=== PATIENT | male | born 1980 | race Caucasian/White ===

== ENCOUNTER 2017-02-16 22:51 | Emergency (ER) | payer BC ==
[~2017-02-16] VITALS: Ht 185.4 cm; Wt 104.5 kg
[~2017-02-16 22:51] MED LIST: ADDERALL30 MG PO; CIPRO 250MG TA250 MG PO; FLAGYL500 MG PO; PREDNISONE10 MG PO; TRIAMCINOLONE0.1% TP; ZYRTEC10 MG PO
[2017-02-16] MEDS ORDERED: NEXIUM20 MG PO (23:09)
[2017-02-16] MEDS ORDERED: LISINOPRIL20 MG PO (23:09)
[2017-02-16] MEDS ORDERED: AMOXICILLIN875 MG PO (23:21)
[2017-02-16] MEDS ORDERED: NORCO 325 MG-51 TA1 PO (23:21)
[2017-02-16 23:33] VITALS: BP 160/113
== END 2017-02-16 23:30 | disposition home or self-care (01) ==
LOC: ED 22:51
DX: K04.7 Periapical abscess without sinus (principal); K03.81 Cracked tooth; I10 Essential (primary) hypertension; F17.200 Nicotine dependence, unspecified, uncomplicated

== ENCOUNTER → 2018-01-13 | Outpatient (CLI) | payer BC ==
[~2018-01-13] MED LIST changes: +AMOXICILLIN875 MG PO; +LISINOPRIL20 MG PO; +NEXIUM20 MG PO; +NORCO 325 MG-51 TA1 PO
== END ==
LOC: RAD 17:14
DX: M25.461 Effusion, right knee (principal)

== ENCOUNTER → 2018-02-11 | Outpatient (CLI) | payer BC | LOC: LAB 15:35 | DX: R05 Cough (principal); R50.9 Fever, unspecified; R52 Pain, unspecified ==

== ENCOUNTER → 2020-03-19 | Outpatient (CLI) | payer OTHER ==
[2020-03-19 09:45] LABS: URINE APPEARANCE HAZY; URINE BILIRUBIN NEGATIVE (NEGATIVE); URINE BLOOD 50 ery/uL (NEGATIVE); URINE COLOR YELLOW; URINE GLUCOSE NEGATIVE (NEGATIVE); URINE KETONE NEGATIVE (NEGATIVE); URINE LEUKOCYTE ESTERASE NEGATIVE (NEGATIVE); URINE MUCUS PRESENT (NOT PRESENT); URINE NITRATE NEGATIVE (NEGATIVE); URINE PROTEIN(semi-quant) 2+ mg/dL (NEGATIVE); URINE UROBILINOGEN NORMAL (NORMAL); URINE WBC 0-1 /hpf (0-3)
== END ==
LOC: LAB 09:14
PROVIDERS: Family Medicine
DX: I10 Essential (primary) hypertension (principal); F90.9 Attention-deficit hyperactivity disorder, unspecified type; R10.9 Unspecified abdominal pain; R12 Heartburn

== ENCOUNTER → 2020-05-31 | Outpatient (CLI) | payer OTHER ==
[2020-05-31 09:00] LABS: HEMATOCRIT 44.2 % (42.0-52.0); HEMOGLOBIN 15.2 g/dL (13.5-18.0); MEAN CELL VOLUME 95 fl (78-100); MEAN CORPUSCULAR HEMOGLOBIN 33 pg (27-31); MEAN CORPUSCULAR HGB CONC 34 g/dL (33-37); MEAN PLATELET VOLUME 9.9 fl (7.4-10.4); PLATELET COUNT 187 K/mm3 (130-400); RED BLOOD COUNT 4.67 M/mm3 (4.20-5.60); RED CELL DISTRIBUTION WIDTH 13.2 % (11.5-14.5); WHITE BLOOD COUNT 6.3 K/mm3 (4.8-10.8)
[2020-05-31 09:21] LABS: LYMPHOCYTE 27 % (20-51); MONOCYTE 16 % (3-10); NEUTROPHILS 51 % (42-75)
== END ==
LOC: LAB 08:47
PROVIDERS: Family Medicine
DX: R10.84 Generalized abdominal pain (principal)

== ENCOUNTER 2020-07-19 23:02 | Emergency (ER) | payer OTHER ==
[2020-07-20 00:31] LABS: EOS # 0.2 (0.04-0.40); EOS % 2.5 % (0.0-4.0); HEMATOCRIT 43.9 % (42.0-52.0); HEMOGLOBIN 15.1 g/dL (13.5-18.0); LYMPH# 2.2 (1.50-4.00); MEAN CELL VOLUME 96 fl (78-100); MEAN CORPUSCULAR HEMOGLOBIN 33 pg (27-31); MEAN CORPUSCULAR HGB CONC 34 g/dL (33-37); MEAN PLATELET VOLUME 10.5 fl (7.4-10.4); MONO # 0.8 (0.20-0.80); NEU # 3.7 (1.40-6.50); PLATELET COUNT 168 K/mm3 (130-400); RED BLOOD COUNT 4.59 M/mm3 (4.20-5.60); WHITE BLOOD COUNT 6.8 K/mm3 (4.8-10.8)
[2020-07-20 00:32] LABS: ALBUMIN 3.9 g/dL (3.5-5.0); POTASSIUM 3.2 mmol/L (3.5-5.1)
[2020-07-20 00:34] LABS: CALCIUM 8.4 mg/dL (8.3-10.5)
[2020-07-20 00:35] LABS: TOTAL PROTEIN 6.9 g/dL (6.4-8.3)
[2020-07-20 00:37] LABS: TOTAL BILIRUBIN 0.4 mg/dL (0.2-1.2)
[2020-07-20 00:42] LABS: ACETAMINOPHEN < 1 ug/mL
[2020-07-20 01:06] LABS: URINE APPEARANCE CLEAR; URINE BILIRUBIN NEGATIVE (NEGATIVE); URINE BLOOD NEGATIVE (NEGATIVE); URINE COLOR YELLOW; URINE GLUCOSE NEGATIVE (NEGATIVE); URINE KETONE NEGATIVE (NEGATIVE); URINE NITRATE NEGATIVE (NEGATIVE); URINE PROTEIN(semi-quant) TRACE mg/dL (NEGATIVE); URINE UROBILINOGEN NORMAL (NORMAL)
[2020-07-20 01:07] LABS: URINE LEUKOCYTE ESTERASE NEGATIVE (NEGATIVE); URINE WBC 0-1 /hpf (0-3)
[2020-07-20 01:09] LABS: TROPONIN-I < 0.03 ng/mL (<0.030)
[2020-07-20 02:00] VITALS: BP 145/99
== END 2020-07-20 02:00 | disposition home or self-care (01) ==
LOC: ED 23:02
PROVIDERS: Nurse Practitioner Family
DX: S06.9X9A Unspecified intracranial injury with loss of consciousness of unspecified duration, initial encounter (principal); S00.83XA Contusion of other part of head, initial encounter; F19.129 Other psychoactive substance abuse with intoxication, unspecified; R94.5 Abnormal results of liver function studies; W10.9XXA Fall (on) (from) unspecified stairs and steps, initial encounter
CPT/HCPCS: Q9967

== ENCOUNTER → 2020-10-04 | Outpatient (CLI) | payer OTHER ==
[2020-10-04 14:44] LABS: HEMATOCRIT 47.3 % (42.0-52.0); MEAN CELL VOLUME 98 fl (78-100); MEAN CORPUSCULAR HEMOGLOBIN 33 pg (27-31); MEAN CORPUSCULAR HGB CONC 34 g/dL (33-37); MEAN PLATELET VOLUME 9.9 fl (7.4-10.4); PLATELET COUNT 140 K/mm3 (130-400); RED BLOOD COUNT 4.82 M/mm3 (4.20-5.60); RED CELL DISTRIBUTION WIDTH 13.2 % (11.5-14.5); WHITE BLOOD COUNT 5.1 K/mm3 (4.8-10.8)
[2020-10-04 14:51] LABS: ALBUMIN 4.1 g/dL (3.5-5.0); POTASSIUM 3.7 mmol/L (3.5-5.1)
[2020-10-04 14:52] LABS: CALCIUM 8.9 mg/dL (8.3-10.5)
[2020-10-04 14:54] LABS: TOTAL PROTEIN 7.2 g/dL (6.4-8.3)
[2020-10-04 14:55] LABS: TOTAL BILIRUBIN 0.8 mg/dL (0.2-1.2)
[2020-10-04 15:25] LABS: PH-URINE 5.5 (5.0 - 8.0); URINE APPEARANCE CLEAR; URINE BILIRUBIN NEGATIVE (NEGATIVE); URINE BLOOD TRACE (NEGATIVE); URINE COLOR YELLOW; URINE GLUCOSE NEGATIVE (NEGATIVE); URINE KETONE NEGATIVE (NEGATIVE); URINE LEUKOCYTE ESTERASE NEGATIVE (NEGATIVE); URINE NITRATE NEGATIVE (NEGATIVE); URINE PROTEIN(semi-quant) TRACE mg/dL (NEGATIVE); URINE UROBILINOGEN NORMAL (NORMAL); URINE WBC 0-1 /hpf (0-3)
[2020-10-04 15:26] LABS: LYMPHOCYTE 31 % (20-51); MONOCYTE 14 % (3-10); NEUTROPHILS 53 % (42-75)
== END ==
LOC: LAB 14:29
PROVIDERS: Physician Assistant
DX: K76.0 Fatty (change of) liver, not elsewhere classified (principal)

== ENCOUNTER → 2021-02-22 | Outpatient (CLI) | payer OTHER ==
[2021-02-22 16:16] LABS: ALBUMIN 4.2 g/dL (3.5-5.0)
[2021-02-22 16:18] LABS: TOTAL PROTEIN 7.7 g/dL (6.4-8.3)
[2021-02-22 16:20] LABS: TOTAL BILIRUBIN 1.3 mg/dL (0.2-1.2)
[2021-02-22 16:22] LABS: BASO # 0.03 (0.02-0.10); EOS # 0.23 (0.04-0.40); EOS % 2.5 % (0.0-4.0); HEMATOCRIT 47.7 % (42.0-52.0); HEMOGLOBIN 16.6 g/dL (13.5-18.0); LYMPH# 2.24 (1.50-4.00); MEAN CELL VOLUME 96 fl (78-100); MEAN CORPUSCULAR HEMOGLOBIN 34 pg (27-31); MEAN CORPUSCULAR HGB CONC 35 g/dL (33-37); MEAN PLATELET VOLUME 9.8 fl (7.4-10.4); MONO # 1.27 (0.20-0.80); NEU # 5.45 (1.40-6.50); PLATELET COUNT 166 K/mm3 (130-400); RED BLOOD COUNT 4.95 M/mm3 (4.20-5.60); WHITE BLOOD COUNT 9.3 K/mm3 (4.8-10.8)
[2021-02-22 18:04] LABS: URINE APPEARANCE CLEAR; URINE BILIRUBIN NEGATIVE (NEGATIVE); URINE BLOOD NEGATIVE (NEGATIVE); URINE COLOR YELLOW; URINE GLUCOSE NEGATIVE (NEGATIVE); URINE KETONE NEGATIVE (NEGATIVE); URINE LEUKOCYTE ESTERASE NEGATIVE (NEGATIVE); URINE MUCUS PRESENT (NOT PRESENT); URINE NITRATE NEGATIVE (NEGATIVE); URINE PROTEIN(semi-quant) TRACE mg/dL (NEGATIVE); URINE UROBILINOGEN NORMAL (NORMAL)
[2021-02-22 18:05] LABS: ERYTHROCYTE SEDIMENTATION RATE 52 mm/hr (0-15)
[2021-02-22 19:36] LABS: DIRECT BILIRUBIN 0.5 mg/dL (0.0-0.5)
== END ==
LOC: LAB 15:42
PROVIDERS: Family Medicine
DX: K57.90 Diverticulosis of intestine, part unspecified, without perforation or abscess without bleeding (principal)

== ENCOUNTER → 2021-11-15 | Outpatient (CLI) | payer OTHER ==
[2021-11-15 09:02] LABS: BASO # 0.04 K/mm3 (0.02-0.10); EOS # 0.17 K/mm3 (0.04-0.40); EOS % 2.9 % (0.0-4.0); HEMATOCRIT 43.3 % (42.0-52.0); HEMOGLOBIN 14.7 g/dL (13.5-18.0); MEAN CELL VOLUME 98 fl (78-100); MEAN CORPUSCULAR HEMOGLOBIN 33 pg (27-31); MEAN CORPUSCULAR HGB CONC 34 g/dL (33-37); MEAN PLATELET VOLUME 10.5 fl (7.4-10.4); MONO # 0.83 K/mm3 (0.20-0.80); PLATELET COUNT 156 K/mm3 (130-400); RED BLOOD COUNT 4.41 M/mm3 (4.20-5.60); RED CELL DISTRIBUTION WIDTH 12.3 % (11.5-14.5); WHITE BLOOD COUNT 5.9 K/mm3 (4.8-10.8)
[2021-11-15 09:05] LABS: ALBUMIN 4.1 g/dL (3.5-5.0)
[2021-11-15 09:06] LABS: CALCIUM 9.5 mg/dL (8.3-10.5)
[2021-11-15 09:07] LABS: TOTAL PROTEIN 7.1 g/dL (6.4-8.3)
[2021-11-15 09:09] LABS: TOTAL BILIRUBIN 0.8 mg/dL (0.2-1.2)
== END ==
LOC: LAB 08:23
PROVIDERS: Physician Assistant
DX: Z00.00 Encounter for general adult medical examination without abnormal findings (principal); Z12.5 Encounter for screening for malignant neoplasm of prostate; Z13.220 Encounter for screening for lipoid disorders; K90.9 Intestinal malabsorption, unspecified; K21.9 Gastro-esophageal reflux disease without esophagitis; K76.0 Fatty (change of) liver, not elsewhere classified; F90.9 Attention-deficit hyperactivity disorder, unspecified type; I10 Essential (primary) hypertension; R74.8 Abnormal levels of other serum enzymes; R73.9 Hyperglycemia, unspecified

== ENCOUNTER 2022-02-22 00:18 | Emergency (ER) | payer OTHER ==
[~2022-02-22] VITALS: Ht 182.9 cm; Wt 104.5 kg
[2022-02-22] MEDS ORDERED: BACTRIM DS TAB1 EACH PO (00:53)
[2022-02-22 01:16] VITALS: BP 135/83
== END 2022-02-22 01:16 | disposition home or self-care (01) ==
LOC: ED 00:18
DX: L03.116 Cellulitis of left lower limb (principal); Z28.310 Unvaccinated for COVID-19

== ENCOUNTER 2022-10-03 19:36 | Emergency (ER) | payer OTHER ==
[~2022-10-03] VITALS: Ht 185.4 cm; Wt 112.7 kg
[~2022-10-03 19:36] MED LIST changes: +BACTRIM DS TAB1 EACH PO
[2022-10-03 20:22] LABS: BASO # 0.04 K/mm3 (0.02-0.10); EOS # 0.18 K/mm3 (0.04-0.40); EOS % 3.1 % (0.0-4.0); HEMATOCRIT 44.1 % (42.0-52.0); HEMOGLOBIN 15.3 g/dL (13.5-18.0); LYMPH# 1.53 K/mm3 (1.50-4.00); MEAN CELL VOLUME 96 fl (78-100); MEAN CORPUSCULAR HEMOGLOBIN 33 pg (27-31); MEAN CORPUSCULAR HGB CONC 35 g/dL (33-37); MEAN PLATELET VOLUME 10.1 fl (7.4-10.4); MONO # 0.73 K/mm3 (0.20-0.80); PLATELET COUNT 139 K/mm3 (130-400); RED BLOOD COUNT 4.59 M/mm3 (4.20-5.60); RED CELL DISTRIBUTION WIDTH 12.8 % (11.5-14.5); WHITE BLOOD COUNT 5.8 K/mm3 (4.8-10.8)
[2022-10-03 20:30] LABS: ALBUMIN 4.1 g/dL (3.5-5.0); POTASSIUM 3.6 mmol/L (3.5-5.1)
[2022-10-03 20:31] LABS: CALCIUM 8.9 mg/dL (8.3-10.5)
[2022-10-03 20:32] LABS: TOTAL PROTEIN 6.9 g/dL (6.4-8.3)
[2022-10-03 20:44] LABS: URINE WBC 0 /hpf (0-3)
[2022-10-03 20:54] LABS: URINE APPEARANCE CLEAR; URINE BILIRUBIN NEGATIVE (NEGATIVE); URINE BLOOD TRACE (NEGATIVE); URINE COLOR YELLOW; URINE KETONE NEGATIVE (NEGATIVE); URINE LEUKOCYTE ESTERASE NEGATIVE (NEGATIVE); URINE NITRATE NEGATIVE (NEGATIVE); URINE PROTEIN(semi-quant) 1+ (NEGATIVE); URINE UROBILINOGEN NORMAL (NORMAL)
[2022-10-03 20:55] LABS: URINE MUCUS PRESENT (NOT PRESENT)
[2022-10-03] MEDS ORDERED: NORVASC 10MG10 MG PO (21:56)
[2022-10-03] MEDS ORDERED: PROTONIX TR40 M1 PO (21:56)
[2022-10-03 22:02] VITALS: BP 140/89
== END 2022-10-03 22:02 | disposition home or self-care (01) ==
LOC: ED 19:36
PROVIDERS: Family Medicine
DX: K76.0 Fatty (change of) liver, not elsewhere classified (principal); R73.9 Hyperglycemia, unspecified; F17.210 Nicotine dependence, cigarettes, uncomplicated; Z28.310 Unvaccinated for COVID-19
CPT/HCPCS: Q9967

== ENCOUNTER → 2023-04-10 | Outpatient (CLI) | payer OTHER ==
[~2023-04-10] MED LIST changes: +NORVASC 10MG10 MG PO; +PROTONIX TR40 M1 PO
[2023-04-10 07:54] LABS: HEMATOCRIT 41.6 % (42.0-52.0); HEMOGLOBIN 14.5 g/dL (13.5-18.0); MEAN PLATELET VOLUME 9.5 fl (7.4-10.4); RED BLOOD COUNT 4.2 M/mm3 (4.20-5.60); RED CELL DISTRIBUTION WIDTH 13.6 % (11.5-14.5); WHITE BLOOD COUNT 4.8 K/mm3 (4.8-10.8)
[2023-04-10 08:05] LABS: ALBUMIN 4.2 g/dL (3.5-5.0)
[2023-04-10 08:06] LABS: CALCIUM 9.4 mg/dL (8.3-10.5)
[2023-04-10 08:09] LABS: TOTAL BILIRUBIN 0.7 mg/dL (0.2-1.2)
== END ==
LOC: LAB 07:42
PROVIDERS: Physician Assistant
DX: I10 Essential (primary) hypertension (principal); F90.9 Attention-deficit hyperactivity disorder, unspecified type; K21.9 Gastro-esophageal reflux disease without esophagitis; E78.2 Mixed hyperlipidemia; E55.9 Vitamin D deficiency, unspecified; K76.0 Fatty (change of) liver, not elsewhere classified; K90.9 Intestinal malabsorption, unspecified; R53.83 Other fatigue; R73.9 Hyperglycemia, unspecified; R74.8 Abnormal levels of other serum enzymes

== ENCOUNTER → 2023-06-20 | Outpatient (CLI) | payer OTHER ==
[~2023-06-20] MED LIST changes: +AMOXICILLIN AND1 TA2 PO; +CARVEDILOL12.5 MG PO; +DEXTROAMPHETAMI10 M3 PO; +ESOMEPRAZOLE MA20 MG PO; +LEADER MELATONIN5 MG PO; +LISINOPRIL40 MG PO
[2023-06-20 13:02] LABS: HEMATOCRIT 45.9 % (42.0-52.0); HEMOGLOBIN 16.5 g/dL (13.5-18.0); MEAN CELL VOLUME 99 fl (78-100); MEAN CORPUSCULAR HEMOGLOBIN 35 pg (27-31); MEAN CORPUSCULAR HGB CONC 36 g/dL (33-37); MEAN PLATELET VOLUME 9.8 fl (7.4-10.4); PLATELET COUNT 164 K/mm3 (130-400); RED BLOOD COUNT 4.66 M/mm3 (4.20-5.60); RED CELL DISTRIBUTION WIDTH 12.7 % (11.5-14.5); WHITE BLOOD COUNT 11.2 K/mm3 (4.8-10.8)
[2023-06-20 13:10] LABS: ALBUMIN 4.4 g/dL (3.5-5.0)
[2023-06-20 13:11] LABS: CALCIUM 9.6 mg/dL (8.3-10.5)
[2023-06-20 13:12] LABS: TOTAL PROTEIN 7.8 g/dL (6.4-8.3)
[2023-06-20 13:14] LABS: TOTAL BILIRUBIN 1.7 mg/dL (0.2-1.2)
[2023-06-20 13:16] LABS: BAND 1 % (0-10); NEUTROPHILS 66 % (42-75)
[2023-06-20 13:17] LABS: LYMPHOCYTE 20 % (20-51); MONOCYTE 11 % (3-10)
== END ==
LOC: LAB 12:46
PROVIDERS: Physician Assistant
DX: R10.30 Lower abdominal pain, unspecified (principal)